=== PATIENT | female | born 1995 | race Caucasian/White ===

== ENCOUNTER → 2018-06-05 | Outpatient (CLI) | payer OTHER ==
[2018-06-05 16:34] LABS: HCT 37.6 % (34.0-46.0); HGB 12.2 gm/dL (11.4-16.0); MCH 26.5 pg (25.0-35.0); MCHC 32.5 g/dL (31.0-37.0); MCV 81.5 fL (80.0-100.0); Mean Platelet Volume 7.7; Platelet Count 189 k/uL (150-450); RBC 4.62 m/uL (3.80-5.40); RDW 14.3 % (11.5-15.5); WBC 9.5 k/uL (3.8-10.6)
[2018-06-05 16:44] LABS: Glucose 72 mg/dL (74-99)
--- NOTE | 2018-06-05 22:28 | US ---
EXAMINATION TYPE: Transabdominal DATE OF EXAM: 08/09/17 COMPARISON: NONE CLINICAL HISTORY: Z36 Confirm dates. Confirm dates, 2 prior c-sections EXAM PERFORMED: Transabdominal (TA) EXAM MEASUREMENTS: GESTATIONAL AGE / DATING Physician Established: (11 weeks/1 days) EDC: 12/24/18 Dates by LMP: (11 weeks/1 days) EDC: 12/24/18 Dates by First Scan: No previous this is first scan Dates by Current Scan for: (11 weeks/0 days) EDC: 12/25/18 MATERNAL ANATOMY Uterus: 11.3 x 8.1 x 8.0cm Right Ovary: 3.7 x 2.0 x 1.5cm Left Ovary: 4.2 x 1.8 x 2.7cm Post CDS / Adnexa: appears wnl Presence of free fluid: no GESTATION / SURVEY CRL: 4.1cm (11 weeks/0 days) Yolk Sac (normal less than 6mm): 0.4cm Heart Rate: 172 bpm Rhythm: Normal IUP: Viable IUP Date of LMP: 03/19/18 Beta HcG (if available): Not available at this time Single live intrauterine gestation is confirmed as the gestational sac, yolk sac, and pole are identified. No free fluid is seen in pelvic cul-de-sac. Both ovaries are seen. There is no suspicious extraovarian adnexal mass noted. IMPRESSION: Single live intrauterine gestation is confirmed, mean crown-rump length is 4.1 cm corresp onding to 11 weeks 0 day old fetus.
[2018-06-06 01:28] LABS: HIV 1 AB Non-Reactive (Non-Reactive); HIV AB P24 Non-Reactive (Non-Reactive); HIV P24 AG Non-Reactive (Non-Reactive)
== END | disposition home or self-care (01) ==
LOC: RADUSWWP 15:47
PROVIDERS: ATTEND Obstetrics & Gynecology
DX: Z36.9 Encounter for antenatal screening, unspecified (principal); Z34.81 Encounter for supervision of other normal pregnancy, first trimester; Z3A.11 11 weeks gestation of pregnancy
CPT/HCPCS: 76801; 82565; 82947; 85027; 86762; 86780; 86850; 86900; 86901; 87340; 87390

== ENCOUNTER 2018-11-06 16:00 | Outpatient (CLI) | payer OTHER ==
[2018-11-06 17:01] LABS: Basophils % (A) 0 %; Eosinophils # (A) 0.2 k/uL (0-0.7); Eosinophils % (A) 2 %; HCT 38.8 % (34.0-46.0); HGB 12.4 gm/dL (11.4-16.0); Lymphocytes # (A) 1.8 k/uL (1.0-4.8); Lymphocytes % (A) 15 %; MCH 26.4 pg (25.0-35.0); MCHC 31.9 g/dL (31.0-37.0); MCV 82.8 fL (80.0-100.0); Mean Platelet Volume 9.3; Monocytes # (A) 0.5 k/uL (0-1.0); Monocytes % (A) 4 %; Neutrophils # (A) 9.5 k/uL (1.3-7.7); Neutrophils % (A) 78 %; Platelet Count 204 k/uL (150-450); RBC 4.68 m/uL (3.80-5.40); RDW 14.4 % (11.5-15.5); WBC 12.2 k/uL (3.8-10.6)
[2018-11-06 17:10] LABS: ALT 13 U/L (9-52); AST 15 U/L (14-36); African American GFR (CKD) >90 (>60 ml/min/1.73 sqM); Blood Urea Nitrogen 3 mg/dL (7-17); LDH 390 U/L (313-618); Uric Acid 3.1 mg/dL (3.7-7.4)
[2018-11-06 17:33] LABS: Amorphous Sediment,Urine Rare /hpf; Appearance,Urine Turbid (Clear); Bilirubin,Urine Negative (Negative); Blood,Urine Negative (Negative); Color,Urine Yellow; Glucose,Urine (UA) Negative (Negative); Ketones,Urine Negative (Negative); Leukocyte Esterase,Urine Moderate (Negative); Mucus,Urine Few /hpf; Nitrite,Urine Negative (Negative); Protein,Urine 1+ (Negative); Specific Gravity,Urine 1.018 (1.001-1.035); Squamous Epithelial Cell,Urine 74 /hpf (0-4); Urobilinogen,Urine <2.0 mg/dL (<2.0); WBC,Urine 15 /hpf (0-5)
[2018-11-06 18:24] VITALS: BP 133/83; PULSE 103; RESP 16; TEMP 98.4
--- NOTE | 2018-11-07 06:41 | P.MSEPDOC ---
Presenting Problems - Arrival Data Date of Arrival on Unit: 11/06/18 Time of Arrival on Unit: 16:00 Mode of Transport: Ambulatory - Complaint OB-Reason for Admission/Chief Complaint: PIH Comment: with script from office Medical History - Information : 5 Para: 2 Term: 0 : 0 Abortions: Spontaneous or Elective: 2 Number of Living Children: 2 - Gestational Age Gestational Age by YRN (wks/days): 33 Weeks and 1 Days - History Complications: Prior Review of Systems - Review of Systems Constitutional: No problems Breast: No problems ENT: No problems Cardiovascular: No problems Respiratory: No problems Gastrointestinal: No problems Genitourinary: No problems Musculoskeletal: No problems Neurological: No problems Skin: No problems Vital Signs - Temperature Temperature: 98.4 F Temperature Source: Oral - Pulse Right Sitting Brachial Pulse Rate: 103 Pulse Assessment Method: Automatic Cuff - Respirations Respiratory Rate: 16 Oxygen Delivery Method: Room Air O2 Sat by Pulse Oximetry: 99 - Blood Pressure Right Arm Sitting Blood Pressure: 133/83 Blood Pressure Mean: 99 Blood Pressure Source: Automatic Cuff Medical Screen Scoring (Pre) - Cervical Exam Dilation: Exam Deferred Effacement: Exam Deferred Membranes: Intact - Uterine Contractions Frequency: N/A - Maternal Vital Signs Maternal Temperature: N/A Maternal Blood Pressure: N/A Signs of Preeclampsia: N/A Maternal Respirations: N/A - Maternal Trauma Maternal Trauma: N/A - Assessment - Baby A Baseline FHR: 125 Heart Rate - NICHD Category: Category I (Normal) = 0 NST: Reactive Position: N/A - Total Score - Baby A Total Score - Baby A: 0 - Total Score - Baby B Total Score - Baby B: 0 - Total Score - Baby C Total Score - Baby C: 0 - Level of Risk - Baby A Level of Risk - Baby A: Low (0-5) - Level of Risk - Baby B Level of Risk - Baby B: Low (0-5) - Level of Risk - Baby C Level of Risk - Baby C: Low (0-5) Physician Notification (Post) - Physician Notified Physician Notified Date: 11/06/18 Physician Notified Time: 17:37 Spoke With: Madelyn Barros Order Received: Yes (dc with instruction) - Notification Comment Comment: labs and pressures wnl, follow up in office next week Disposition - Disposition OB Disposition: Discharge to home, Written follow up instructions reviewed Discharge Date: 11/06/18 Discharge Time: 17:45 I agree with the RN Medical Screening Exam: Yes Risk & Benefit of care provided described in d/c instruction: Yes Diagnosis: GESTATIONAL HTN W/O SIGNIFICANT PROTEINURIA, THIRD TRIMESTER (Patient had some mild blood pressure elevations in the office however here in labor and delivery had all normal blood pressures and normal preeclampsia evaluation. Patient was stable for discharge home follow up with me in 1 week for repeat blood pressure check and to call if any signs or symptoms otherwise.)
== END 2018-11-06 17:45 | disposition home or self-care (01) ==
LOC: FBPOP 16:00
PROVIDERS: ATTEND Obstetrics & Gynecology
DX: O13.3 Gestational [pregnancy-induced] hypertension without significant proteinuria, third trimester (principal); Z3A.33 33 weeks gestation of pregnancy
CPT/HCPCS: 59025; 81001; 82565; 82570; 83615; 84156; 84450; 84460; 84520; 84550; 85025

== ENCOUNTER 2018-12-22 05:50 | Inpatient (IN) | payer OTHER ==
--- NOTE | 2018-12-21 06:36 | P.HPOB ---
History of Present Illness H&P Date: 12/21/18 Chief Complaint: Repeat section This patient is a 23-year-old 5 para 2 female estimated date of confinement 12/24/2018 estimated gestational age 39-4/7 weeks who presents to labor and delivery for elective repeat section. Patient's had 2 previous sections and request repeat. Patient's has been uncomplicated with the exception of one episode of elevated blood pressure at 33 weeks for evaluation was negative in follow-up blood pressures have been fine. Review of Systems Gastrointestinal: Reports heartburn Genitourinary: Reports Menstruation: Reports amenorrhea Past Medical History Past Medical History: No Reported History History of Any Multi-Drug Resistant Organisms: None Reported Past Surgical History: Section Past Anesthesia/Blood Transfusion Reactions: No Reported Reaction Past Psychological History: No Psychological Hx Reported Smoking Status: Former smoker Past Alcohol Use History: None Reported Past Drug Use History: None Reported - Past Family History Mother Family Medical History: No Reported History Medications and Allergies Home Medications Medication Instructions Recorded Confirmed Type Mqc-Solt-Uvhkq Acid 1 each PO DAILY #100 cap 04/07/15 11/06/18 Rx [-U Capsule (formulary)] Allergies Allergy/AdvReac Type Severity Reaction Status Date / Time latex AdvReac Itching Verified 08/05/18 02:07 Exam - OBG Physical Exam Abdomen: bowel sounds normal, no diffuse tenderness, no bruit present, no guarding noted, no hepatomegaly, no splenomegaly, no mass Vulva: both: normal Vagina: normal moisture, no discharge Cervix: no lesion (Cervix in the office is closed.), no discharge Uterus: enlarged (Fundal height greater than dates) Results blood work shows she is O positive, rubella immune, RPR nonreactive, hepatitis B negative, HIV is nonreactive, Glucola was abnormal with a normal three-hour gtt., group B strep was positive, ultrasounds have been normal with the exception of LGA. Assessment and Plan Assessment: This is a 23-year-old 5 para 2 female 39-4/7 weeks gestation with 2 previous sections who is requesting repeat section. Plan is repeat low transverse section. Patient and I discussed the surgery and risks including risks of infection, bleeding, possible injury bowel, bladder, vessels, and/or other organs. She also understands increased risk of DVT and pulmonary embolism. All the patient's questions are answered and a written consent is obtained. (1) 39 weeks gestation of Status: Acute Code(s): Z3A.39 - 39 WEEKS GESTATION OF SNOMED Code(s): 77160626 (2) Previous delivery affecting Status: Acute Code(s): O34.219 - MATERNAL CARE FOR UNSP TYPE SCAR FROM PREVIOUS DEL SNOMED Code(s): 205993105 (3) Group B streptococcal carriage complicating Status: Acute Code(s): O99.820 - STREPTOCOCCUS B CARRIER STATE COMPLICATING SNOMED Code(s): 371132404943951 (4) Morbid obesity Status: Acute Code(s): E66.01 - MORBID (SEVERE) OBESITY DUE TO EXCESS CALORIES SNOMED Code(s): 201256984
[2018-12-22] MEDS ORDERED: LACTATED RINGERS 1,000 ML IV ONE (06:16)
[2018-12-22] MEDS ORDERED: CITRIC ACID-SODIUM CITRATE 15 ML CUP PO ONE (06:16)
[2018-12-22] MEDS ORDERED: LACTATED RINGERS 1,000 ML IV SCH (06:16)
[2018-12-22] MEDS ORDERED: ceFAZolin 3 GM in SODIUM CHLORIDE 0.9% 100 ML IVPB ONE (06:16)
[2018-12-22 06:26] LABS: Basophils % (A) 0 %; Eosinophils # (A) 0.3 k/uL (0-0.7); Eosinophils % (A) 2 %; HCT 38.8 % (34.0-46.0); HGB 12.4 gm/dL (11.4-16.0); Lymphocytes # (A) 2.1 k/uL (1.0-4.8); Lymphocytes % (A) 19 %; MCH 25.9 pg (25.0-35.0); MCHC 32.1 g/dL (31.0-37.0); MCV 80.9 fL (80.0-100.0); Mean Platelet Volume 9.7; Monocytes # (A) 0.5 k/uL (0-1.0); Monocytes % (A) 4 %; Neutrophils # (A) 8.4 k/uL (1.3-7.7); Neutrophils % (A) 73 %; Platelet Count 208 k/uL (150-450); RDW 15.2 % (11.5-15.5); WBC 11.4 k/uL (3.8-10.6)
[2018-12-22 06:33] VITALS: BMI 45.1
[2018-12-22] MEDS ORDERED: ePHEDrine SULFATE/0.9% NACL/PF 50 MG/5 ML SYRINGE IV ONE (07:48)
[2018-12-22] MEDS ORDERED: MORPHINE SULFATE (PF) 0.3 MG/0.3 ML SYR ONE (07:48)
[2018-12-22] MEDS ORDERED: OXYTOCIN 10 UNIT/ML 1 ML VIAL ONE (07:48)
[2018-12-22] MEDS ORDERED: fentaNYL (PF) 50 MCG/ML 2 ML AMP ONE (07:48)
[2018-12-22] MEDS ORDERED: NALBUPHINE 10 MG/ML (1 ML AMP) ONE (07:48)
[2018-12-22] MEDS ORDERED: KETOROLAC 30 MG/ML 1 ML VIAL ONE (07:48)
[2018-12-22] MEDS ORDERED: ONDANSETRON 4 MG/2 ML VIAL ONE (07:48)
[2018-12-22] MEDS ORDERED: METOCLOPRAMIDE 5 MG/ML 2 ML VIAL IVP PRN ×2 (08:34→10:30)
[2018-12-22] MEDS ORDERED: KETOROLAC 30 MG/ML 1 ML VIAL IVP PRN ×2 (08:34→10:30)
[2018-12-22] MEDS ORDERED: diphenhydrAMINE 50 MG/ML 1 ML VIAL IVP PRN ×2 (08:34→10:30)
[2018-12-22] MEDS ORDERED: NALBUPHINE 10 MG/ML (1 ML AMP) IV PRN (08:34)
[2018-12-22] MEDS ORDERED: HYDROmorphone 1 MG/ML 1 ML SYRINGE IVP PRN (08:34)
[2018-12-22] MEDS ORDERED: NALOXONE 0.4 MG/ML 1 ML VIAL IV PRN ×2 (08:34→10:30)
[2018-12-22] MEDS ORDERED: ONDANSETRON 4 MG/2 ML VIAL IVP PRN ×2 (08:34→10:30)
--- NOTE | 2018-12-22 08:44 | P.OP ---
Date of Procedure: 12/22/18 Preoperative Diagnosis: #1: 39-5/7 week intrauterine . #2: Previous section 2 desires repeat. Postoperative Diagnosis: Same Procedure(s) Performed: Repeat low transverse section Anesthesia: spinal Surgeon: Nathanael Joshi Emergency Room Specialist #1: Nirmal Perez Estimated Blood Loss (ml): 800 Pathology: none sent Condition: stable Disposition: floor Indications for Procedure: Please see dictated H&P for intimate details of this patient's admission. Brief summary this is a pleasant 23-year-old 5 para 2 female 39-5/7 weeks gestation admitted to labor and delivery for elective repeat section. Patient understands this procedure and risks including risks of infection, bleeding, possible injury bowel, bladder, vessels, and/or other organs. Patient understands risk of DVT and pulmonary embolism. All the patient's questions are answered written consent is obtained. Operative Findings: This is a vigorous viable male Apgars 9 and 9 delivery time was 0810 hours. Description of Procedure: This patient has a Metcalf catheter placed to straight drain. She is subsequently taken to the operating room where spinal anesthetic is administered without incident. With an adequate level of anesthesia she has abdominal prep and drape. Scalpels and taken in the previous Pfannenstiel incision is incised. A second scalpel is taken down the fascia the fascia scored with a knife. Fascial incision extended bilaterally using Koch scissors. Fascial incision is then dissected sharply off the rectus muscles. Rectus muscles are the peritoneum identified and entered sharply. Peritoneal incision extended superior for about difficulty. Her some small omental adhesions in the left side which are lysed. Bladder blade is then placed. Bladder peritoneum was taken down sharply. Scalpels taken low transverse uterine incision is made. Using a hemostat I enter the uterine cavity bluntly and there is loss of clear fluid. This incision is extended bluntly. Infant's head is then guided through the incision with fundal pressure deliver the 's head. Mouth and nares are bulb suctioned. There is no evidence of nuchal cord. We then have delivery anterior posterior shoulder and rest this infant's body. Is a vigorous viable male Apgars are 9 and 9 delivery time was 0810 hours. After delivery of the infant the umbilical cords doubly clamped and cut. The infant is handed off to the nurses in attendance. Placenta is then manually extracted intact. Uterine incision is then closed using 0 Vicryl running locked fashion 2 layers. Good hemostasis is noted. Inspection of the tubes and ovary showed be normal for term gestation. Excess fluid is removed from the abdomen and pelvis. Uterus placed back in the abdomen. Parietal peritoneum was then closed using 0 Vicryl running fashion. Rectus muscles reapproximated Vicryl interrupted fashion. Fascia is then closed using 0 PDS. Fascial incision is intact and hemostatic. Subcutaneous tissues and closed using a 3-0 Vicryl. Excellent hemostasis is noted. Skin is and closed using pearl. All counts are correct 3. There are no complications. and mother are taken to her birthing suite in satisfactory condition.
[2018-12-22] MEDS ORDERED: HYDROcodone/APAP 5-325MG 1 EACH TAB PO PRN (10:30)
[2018-12-22] MEDS ORDERED: OXYTOCIN 20 UNITS/1000 ML NS 1,000 ML IV SCH (10:30)
[2018-12-22] MEDS ORDERED: LANOLIN CREAM 5 GM TUBE TOPICAL PRN (10:30)
[2018-12-22] MEDS ORDERED: diphenhydrAMINE 25 MG CAP PO PRN (10:30)
[2018-12-22] MEDS ORDERED: ZOLPIDEM 5 MG TAB PO PRN (10:30)
[2018-12-22] MEDS: IBUPROFEN 600 MG TAB PO PRN ×2 (16:55→23:30)
[2018-12-22] MEDS: SENNOSIDES-DOCUSATE SODIUM 1 EACH TAB PO SCH ×2 (19:59→20:00)
[2018-12-22] MEDS: LACTATED RINGERS 1,000 ML IV SCH (20:10)
[2018-12-23] MEDS: ACETAMINOPHEN TAB 325 MG TAB PO PRN ×3 (03:43→20:53)
[2018-12-23 08:09] VITALS: RESP 18
[2018-12-23 08:43] LABS: Basophils % (A) 0 %; Eosinophils # (A) 0.1 k/uL (0-0.7); Eosinophils % (A) 1 %; HCT 34.8 % (34.0-46.0); HGB 10.9 gm/dL (11.4-16.0); Hypochromasia Slight; Lymphocytes # (A) 1.3 k/uL (1.0-4.8); Lymphocytes % (A) 12 %; MCH 25.9 pg (25.0-35.0); MCHC 31.3 g/dL (31.0-37.0); MCV 82.5 fL (80.0-100.0); Mean Platelet Volume 10.1; Monocytes # (A) 0.5 k/uL (0-1.0); Monocytes % (A) 5 %; Neutrophils # (A) 9.2 k/uL (1.3-7.7); Neutrophils % (A) 82 %; Platelet Count 153 k/uL (150-450); RBC 4.21 m/uL (3.80-5.40); RDW 15.7 % (11.5-15.5); WBC 11.3 k/uL (3.8-10.6)
[2018-12-23] MEDS: SENNOSIDES-DOCUSATE SODIUM 1 EACH TAB PO SCH ×2 (08:47→20:53)
[2018-12-23] MEDS: SIMETHICONE 80 MG CHEWABLE PO PRN ×2 (08:48→20:57)
[2018-12-23] MEDS: IBUPROFEN 600 MG TAB PO PRN ×2 (08:48→16:40)
--- NOTE | 2018-12-23 10:25 | P.PNOBGPC ---
Subjective - Subjective Principal diagnosis: Status post repeat low transverse postop day #1 Interval history: Patient seen and examined. She is complaining of some back pain related the spinal and a headache. The headache is worse with standing. I suspect a spinal headache but will attempt hydration and caffeine to alleviate this headache before I consult anesthesia for a blood patch. Her incisional pain is well- controlled with Motrin and [place]. Patient reports: Reports appetite normal, Reports voiding normally, Reports pain well controlled, Reports ambulating normally [place]: doing well Objective - Vital Signs Latest vital signs: Vital Signs Temp Pulse Resp BP Pulse Ox 12/23/18 08:37 98 12/23/18 08:00 18 97 12/23/18 05:00 14 97 12/23/18 03:48 98.2 F 75 16 124/70 12/23/18 03:00 16 12/23/18 01:00 16 98 12/23/18 00:00 98.3 F 75 16 120/65 12/22/18 23:00 16 12/22/18 21:00 16 98 12/22/18 20:00 98.1 F 73 16 117/74 98 12/22/18 18:09 16 12/22/18 17:00 97.9 F 72 16 103/62 98 12/22/18 10:40 98.1 F 67 18 118/61 98 12/22/18 10:37 98.2 F 88 18 122/60 98 Intake and Output 12/22/18 12/23/18 12/23/18 22:59 06:59 14:59 Intake Total 300 Output Total 2650 Balance -2350 Intake: Oral 300 Output: Urine 2650 Uretheral (Metcalf) 800 Other: # Voids 1 1 - Exam Lungs: bilateral: normal Chest: Normal S1, Normal S2 Extremities: Present: normal Abdomen: Present: normal appearance, soft. Absent: distention, tenderness Incision: Present: normal, dry, intact Uterus: Present: normal, firm - Labs Labs: Abnormal Lab Results - Last 24 Hours (Table) 12/23/18 Range/Units 08:05 WBC 11.3 H (3.8-10.6) k/uL Hgb 10.9 L (11.4-16.0) gm/dL RDW 15.7 H (11.5-15.5) % Neutrophils # 9.2 H (1.3-7.7) k/uL Assessment and Plan (1) S/P section Current Visit: No Status: Acute Code(s): Z98.89 - OTHER SPECIFIED POSTPROCEDURAL STATES * DO NOT USE * SNOMED Code(s): 280347726 Plan: 1. Increase fluids and encouraged patient to drink some caffeine 2. When she is feeling better I would like her to ambulate more 3. Regular diet
--- NOTE | 2018-12-23 19:26 | P.PN ---
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 Assessment and plan= postop day 1 status post , doing well there is no anesthesia related complication.
[2018-12-23] MEDS: LACTATED RINGERS 1,000 ML IV SCH ×2 (23:06→23:07)
[2018-12-24] MEDS: ACETAMINOPHEN TAB 325 MG TAB PO PRN (00:34)
[2018-12-24] MEDS: IBUPROFEN 600 MG TAB PO PRN ×2 (04:36→09:54)
[2018-12-24] MEDS: LACTATED RINGERS 1,000 ML IV SCH (04:43)
--- NOTE | 2018-12-24 09:18 | P.DS ---
Providers Date of admission: 12/22/18 05:50 Expected date of discharge: 12/24/18 Attending physician: Nathanael Joshi Primary care physician: Stated None - Discharge Diagnosis(es) (1) S/P section Current Visit: No Status: Acute Hospital Course: Patient presented for repeat low transverse . She underwent this procedure without complication. Postoperatively she is tolerating regular diet and passing flatus. She is ambulating voiding without difficulty. Her pain is well-controlled with by mouth pain meds. She'll be discharged home p ostoperative day #2 in stable condition to follow-up with Dr. Joshi in one week. Plan - Discharge Summary New Discharge Prescriptions: New Ibuprofen [Motrin] 600 mg PO Q6HR PRN #30 tab PRN Reason: Mild Pain Or Fever >= 100.5 HYDROcodone/APAP 5-325MG [[place] 5-325] 1 each PO Q4HR PRN #18 tab PRN Reason: Moderate Pain Discharge Medication List HYDROcodone/APAP 5-325MG [[place] 5-325] 1 each PO Q4HR PRN #18 tab 12/24/18 [Rx] Ibuprofen [Motrin] 600 mg PO Q6HR PRN #30 tab 12/24/18 [Rx] Follow up Appointment(s)/Referral(s): Nathanael Joshi MD [STAFF PHYSICIAN] - 1 Week Discharge Disposition: HOME SELF-CARE
[2018-12-24] MEDS: SIMETHICONE 80 MG CHEWABLE PO PRN (09:55)
[2018-12-24 10:25] VITALS: BP 115/71; PULSE 80; TEMP 98.3
== END 2018-12-24 13:15 | disposition home or self-care (01) | DRG 788 ==
LOC: 4FBP 05:50
PROVIDERS: ADMIT Obstetrics & Gynecology; ATTEND Obstetrics & Gynecology
PROC: 10D00Z1 Extraction of Products of Conception, Low, Open Approach (ICD-10-PCS; principal; 2018-12-22 08:00)
DX: O34.211 Maternal care for low transverse scar from previous cesarean delivery (principal); O99.214 Obesity complicating childbirth; E66.01 Morbid (severe) obesity due to excess calories; O74.5 Spinal and epidural anesthesia-induced headache during labor and delivery; O99.824 Streptococcus B carrier state complicating childbirth; Z37.0 Single live birth; Z3A.39 39 weeks gestation of pregnancy; Z87.891 Personal history of nicotine dependence; Z91.040 Latex allergy status
CPT/HCPCS: 85025; 86850; 86900; 86901

== ENCOUNTER 2021-07-29 05:36 | Inpatient (IN) | payer BC, OTHER ==
--- NOTE | 2021-07-28 12:29 | P.HPOB ---
History of Present Illness H&P Date: 07/28/21 Chief Complaint: Repeat and tubal ligation. This patient is a pleasant 26-year-old 6 para 3 female estimated date of confinement 08/02/2021 estimated gestational age 39-3/7 weeks who is presenting for repeat section and also requesting permanent sterilization. Patient's had previous sections and does desire repeat. is complicated by a placenta previa at approximately 22 weeks however this didn't resolve. also complicated by patient's noncompliance with some testing due to transportation issues. Patient was never able to do her diabetes screening test therefore I did do a hemoglobin A1c which was normal. is otherwise been uncomplicated. Review of Systems Genitourinary: Reports Menstruation: Reports amenorrhea Past Medical History Past Medical History: No Reported History History of Any Multi-Drug Resistant Organisms: None Reported Past Surgical History: Section Past Anesthesia/Blood Transfusion Reactions: No Reported Reaction Past Psychological History: No Psychological Hx Reported Smoking Status: Former smoker Past Alcohol Use History: None Reported Past Drug Use History: None Reported - Past Family History Mother Family Medical History: No Reported History Medications and Allergies Home Medications Medication Instructions Recorded Confirmed Type HYDROcodone/APAP 5-325MG [[place] 1 each PO Q4HR PRN #18 tab 12/24/18 Rx 5-325] Ibuprofen [Motrin] 600 mg PO Q6HR PRN #30 tab 12/24/18 Rx Allergies Allergy/AdvReac Type Severity Reaction Status Date / Time latex AdvReac Itching Verified 12/22/18 06:14 Exam - OBG Physical Exam Abdomen: bowel sounds normal, no diffuse tenderness, no bruit present, no guarding noted, no hepatomegaly, no splenomegaly, no mass Vulva: both: normal Vagina: normal moisture, no discharge Cervix: no lesion, no discharge Uterus: enlarged (Fundal height is 40 cm) Results blood work shows she is O positive, rubella immune, RPR nonreactive, hepatitis B negative, HIV is nonreactive, group B strep was negative will she does have a history of positive strep. Most recent ultrasound showed estimated weight of 5 lbs. 8 oz. with normal anatomy and was on June 30. Assessment and Plan Assessment: This is a pleasant 26-year-old 6 para 3 female estimated gestational age 39-3/7 weeks who presents for elective repeat section and also requesting permanent sterilization. Plan is repeat low transverse section and bilateral partial salpingectomy. Patient understands a tubal ligation is considered permanent however there is a failure rate of approximately 5 or less per thousand procedures done. She understands if she were to become she has a 50% chance of tubal or an ectopic . Patient also understands surgery itself and apparently has risks including risks of infection, bleeding, possible injury bowel, bladder, vessels, and/or other organs. All the patient's questions are answered and a written consent ob tained. (1) Family planning Status: Acute Code(s): Z30.09 - ENCOUNTER FOR OT GENERAL CNSL AND ADVICE ON CONTRACEPTION SNOMED Code(s): 792722072 (2) 39 weeks gestation of Status: Acute Code(s): Z3A.39 - 39 WEEKS GESTATION OF SNOMED Code(s): 43658229 (3) Previous delivery affecting Status: Acute Code(s): O34.219 - MATERNAL CARE FOR UNSP TYPE SCAR FROM PREVIOUS DEL SNOMED Code(s): 982467915
[2021-07-29] MEDS ORDERED: CITRIC ACID-SODIUM CITRATE 15 ML CUP PO ONE (05:53)
[2021-07-29] MEDS ORDERED: LACTATED RINGERS 1,000 ML IV ONE (05:53)
[2021-07-29 06:08] LABS: Basophils % (A) 0 %; Eosinophils # (A) 0.4 k/uL (0-0.7); Eosinophils % (A) 3 %; HCT 39.4 % (34.0-46.0); Hypochromasia Slight; Lymphocytes # (A) 2.7 k/uL (1.0-4.8); Lymphocytes % (A) 19 %; MCH 27.1 pg (25.0-35.0); MCHC 33.1 g/dL (31.0-37.0); Mean Platelet Volume 10.2; Monocytes # (A) 0.5 k/uL (0-1.0); Monocytes % (A) 4 %; Neutrophils # (A) 10.1 k/uL (1.3-7.7); Neutrophils % (A) 72 %; Platelet Count 246 k/uL (150-450); RDW 15.2 % (11.5-15.5)
[2021-07-29 06:13] LABS: Glucose,Whole Blood 97 mg/dL (75-99)
[2021-07-29] MEDS: LACTATED RINGERS 1,000 ML IV SCH ×3 (07:29→12:00)
[2021-07-29] MEDS ORDERED: ePHEDrine 50 MG/ML 1 ML VIAL ONE (07:38)
[2021-07-29] MEDS ORDERED: MORPHINE SULFATE (PF) 0.3 MG/0.3 ML SYR ONE (07:38)
[2021-07-29] MEDS ORDERED: OXYTOCIN 30 UNITS/500 ML NS BAG IV ONE (07:38)
[2021-07-29] MEDS ORDERED: NALBUPHINE 10 MG/ML (1 ML AMP) ONE (07:38)
[2021-07-29] MEDS ORDERED: KETOROLAC 15 MG/ML 1 ML VIAL ONE (07:38)
[2021-07-29] MEDS ORDERED: ONDANSETRON 4 MG/2 ML VIAL ONE (07:38)
--- NOTE | 2021-07-29 08:34 | P.OP ---
Date of Procedure: 07/29/21 Preoperative Diagnosis: #1: 39-3/7 week intrauterine . #2: Previous section 3. #3: Multi parity desires permanent sterilization. Postoperative Diagnosis: #1: Same. #2: Placenta accreta Procedure(s) Performed: Repeat low transverse section and bilateral partial salpingectomy Anesthesia: spinal Surgeon: Nathanael Joshi Neonatal Icu Coordinator #1: Ana Reed Estimated Blood Loss (ml): 800 Pathology: other (Bilateral fallopian tube segments) Condition: stable Disposition: floor Indications for Procedure: Please see dictated H&P for intimate details of this patient's admission. Brief summary is a pleasant 26-year-old 6 para 3 female 39-3/7 weeks gestation admitted to labor and delivery for repeat section and also requesting permanent sterilization. Patient understands a tubal ligation is permanent. She also understands that surgery itself and apparently has risks and risks of infection, bleeding, possible injury to bowel, bladder, vessels, and/or other organs. All the patient's questions are answered and a written consent is obtained. Operative Findings: This is a vigorous viable male Apgars 9 and 9 delivery time was 0755 hours. has spontaneous respiration and good cry and grossly appeared normal. Patient had a large defect in the anterior uterus that was thin with a placenta accreta. Description of Procedure: This patient has a Metcalf catheter placed to straight drain. She is subsequently taken to the operating room where she sat up and spinal anesthetic is administered without incident. With an adequate level of anesthesia she has abdominal prep and drape. Scalpels and taken in the previous Pfannenstiel incision is incised. A second scalpel is taken down to the fascia and the fascia scored with a knife. Fascial incision extended bilaterally using the Koch scissors. Fascia is dissected off the rectus muscles sharply. Rectus muscles are the peritoneum identified and entered sharply. Peritoneal incision extended superior and inferior without difficulty. Bladder blade is placed at this time there is evidence that the lower uterine segment is very thin and there is a approximately 5 cm area of vascularity consistent with a placenta percreta. The bladder is carefully dissected down. Using a scalpel is then make a low transverse uterine incision and it is evident the placenta is anterior and therefore a quickly go through the placenta and the infant is delivered with fundal pressure through the placenta. was immediately delivered cord is doubly clamped and cut and the baby is bulb suctioned. This is a vigorous viable male Apgars 9 and 9 delivery time was 0755 hours. After the is delivered is handed off to the nurses in attendance. The placenta is then manually extracted piecemeal. As stated is a placenta accreta it is somewhat adherent to the uterine incision in the anterior uterine wall. I do believe that we've removed the entirety of the placenta although the edges are still quite ragged. Bleeding appears to be controlled. The rest of the uterus is explored and appears to be clear of all debris. Using a 0 Vicryl and then closed the uterine incisions best as possible running locked fashion. Good hemostasis is noted. One [id number] stitches placed over the middle area where the defect was. Bladder peritoneum was then reapproximated using a 3-0 Vicryl. Hemostasis appears to be excellent this time therefore turned my attention to the left fallopian tube. Proximally 4 cm from the cornual insertion a left side small window is made to the mesial salpinx with Bovie cautery. Using a 2-0 silk I doubly ligate a 2 and a meter area of the fallopian tube. This is excised and handed off to pathology and cautery is done of the tubal ends. Similar technique is done on the right side with similar results. With this done I inspected the uterine incision again appears to be hemostatic. Excess fluid is removed from the abdomen and pelvis uterus placed back into the abdomen. Final inspection of both tubes and uterine incision shows all the be hemostatic. I then isolate the parietal peritoneum then closed using 0 Vicryl running fashion. Rectus muscles reapproximated in 0 Vicryl interrupted fashion. Fascial incision is then closed using 0 PDS. Fascial incision is intact and hemostatic. Subcutaneous tissue was then closed using a 3-0 Vicryl. Skin is and closed using pearl. All counts are correct 3. There are no complications. and mother are taken to the birthing suite in satisfactory condition.
[2021-07-29] MEDS ORDERED: diphenhydrAMINE 50 MG/ML 1 ML VIAL IVP PRN ×2 (08:48→11:06)
[2021-07-29] MEDS ORDERED: KETOROLAC 15 MG/ML 1 ML VIAL IVP PRN (08:48)
[2021-07-29] MEDS ORDERED: HYDROmorphone 0.5 MG/0.5 ML SYRINGE IVP PRN (08:48)
[2021-07-29] MEDS ORDERED: ONDANSETRON 4 MG/2 ML VIAL IVP PRN ×2 (08:48→11:06)
[2021-07-29] MEDS ORDERED: NALOXONE 0.4 MG/ML 1 ML VIAL IV PRN ×2 (08:48→11:06)
[2021-07-29] MEDS ORDERED: NALBUPHINE 10 MG/ML (1 ML AMP) IV PRN (08:48)
[2021-07-29] MEDS ORDERED: ZOLPIDEM 5 MG TAB PO PRN (11:06)
[2021-07-29] MEDS ORDERED: OXYTOCIN 30 UNITS/500 ML NS 30 UNIT in SALINE 1 500ML.BAG IV SCH (11:06)
[2021-07-29] MEDS ORDERED: diphenhydrAMINE 25 MG CAP PO PRN (11:06)
[2021-07-29] MEDS ORDERED: METOCLOPRAMIDE 5 MG/ML 2 ML VIAL IVP PRN (11:06)
[2021-07-29] MEDS ORDERED: LANOLIN CREAM 5 GM TUBE TOPICAL PRN (11:06)
[2021-07-29] MEDS: ACETAMINOPHEN TAB 500 MG TAB PO PRN (13:14)
[2021-07-29] MEDS: KETOROLAC 15 MG/ML 1 ML VIAL IVP SCH ×2 (15:23→22:25)
[2021-07-29] MEDS: SENNOSIDES-DOCUSATE SODIUM 1 EACH TAB PO SCH (15:23)
[2021-07-30] MEDS: ACETAMINOPHEN TAB 500 MG TAB PO PRN (03:50)
--- NOTE | 2021-07-30 06:28 | P.PN ---
Progress Note - Text Progress Note Date: 07/30/21 26 yo female s/p C/section with intrathecal duramorph spinal VAS 1-3/10 in severity, no back pain, no motor or sensory deficits. Ambulating well, tolerating diet, urinating. Patient doing well.
--- NOTE | 2021-07-30 06:37 | P.PNOBGPC ---
Subjective - Subjective Patient reports: Reports appetite normal, Reports voiding normally, Reports pain well controlled, Reports ambulating normally : doing well Objective - Vital Signs Latest vital signs: Vital Signs Temp Pulse Resp BP Pulse Ox 07/30/21 05:25 16 07/30/21 05:00 97 07/30/21 04:00 98.0 F 70 16 120/80 07/30/21 01:27 16 07/30/21 01:00 98 07/30/21 00:00 98.2 F 70 16 07/29/21 22:00 16 07/29/21 20:25 98 07/29/21 20:00 98.5 F 77 16 126/80 07/29/21 18:00 97.3 F L 65 18 127/79 99 07/29/21 17:00 99 07/29/21 16:00 97.3 F L 65 18 127/79 99 07/29/21 13:48 18 98 07/29/21 12:00 97.8 F 69 18 121/72 99 07/29/21 10:25 96.9 F L 59 L 16 125/61 99 07/29/21 09:55 57 L 16 122/63 99 07/29/21 09:48 16 99 07/29/21 09:25 64 16 122/64 99 07/29/21 09:10 68 16 122/64 100 07/29/21 08:55 65 16 117/69 100 07/29/21 08:48 16 99 07/29/21 08:40 70 16 114/71 99 07/29/21 08:25 97.2 F L 69 16 114/59 99 Intake and Output 07/29/21 07/29/21 07/30/21 14:59 22:59 06:59 Output Total 916 600 Balance -916 -600 Output: Urine 300 600 Output, Quantitative 616 Blood Loss Other: # Voids 2 1 - Exam Lungs: bilateral: normal Chest: Normal S1, Normal S2 Extremities: Present: normal Abdomen: Present: normal appearance, soft. Absent: distention, tenderness Incision: Present: normal, dry, intact Uterus: Present: normal, firm Assessment and Plan Assessment: Post operative day #1. Patient is resting without complaints. Vital signs are stable she's afebrile. Uterus is firm and nontender and she is having normal lochia. Her incision is intact and dry. CBC is pending at time of this dictation. My impression this is a normal post operative course. Plan is to continue routine postoperative care, check a CBC, encourage ambulation, allow the patient to shower (1) Family planning Current Visit: No Status: Acute Code(s): Z30.09 - ENCOUNTER FOR OT GENERAL CNSL AND ADVICE ON CONTRACEPTION SNOMED Code(s): 118819305 (2) 39 weeks gestation of Current Visit: No Status: Acute Code(s): Z3A.39 - 39 WEEKS GESTATION OF SNOMED Code(s): 05013342 (3) Previous delivery affecting Current Visit: No Status: Acute Code(s): O34.219 - MATERNAL CARE FOR UNSP TYPE SCAR FROM PREVIOUS DEL SNOMED Code(s): 588750609
[2021-07-30 06:41] LABS: Basophils % (A) 0 %; Eosinophils # (A) 0.2 k/uL (0-0.7); Eosinophils % (A) 2 %; HCT 33.7 % (34.0-46.0); HGB 10.5 gm/dL (11.4-16.0); Hypochromasia Slight; Lymphocytes # (A) 1.8 k/uL (1.0-4.8); Lymphocytes % (A) 14 %; MCH 26.1 pg (25.0-35.0); MCV 84.2 fL (80.0-100.0); Mean Platelet Volume 10.8; Monocytes # (A) 0.5 k/uL (0-1.0); Monocytes % (A) 4 %; Neutrophils % (A) 79 %; Platelet Count 174 k/uL (150-450); RDW 14.9 % (11.5-15.5); WBC 12.7 k/uL (3.8-10.6)
[2021-07-30] MEDS: SENNOSIDES-DOCUSATE SODIUM 1 EACH TAB PO SCH ×3 (09:08→21:11)
[2021-07-30] MEDS: IBUPROFEN 600 MG TAB PO PRN ×3 (09:08→23:22)
[2021-07-30] MEDS: KETOROLAC 15 MG/ML 1 ML VIAL IVP SCH ×2 (11:16→21:12)
[2021-07-30] MEDS: SIMETHICONE 80 MG CHEWABLE PO PRN ×2 (18:47→20:28)
[2021-07-30] MEDS: LACTATED RINGERS 1,000 ML IV SCH (21:11)
[2021-07-31 01:17] VITALS: RESP 18
[2021-07-31] MEDS: ACETAMINOPHEN TAB 500 MG TAB PO PRN ×2 (01:56→05:54)
[2021-07-31] MEDS: IBUPROFEN 600 MG TAB PO PRN ×2 (06:13→13:44)
--- NOTE | 2021-07-31 06:42 | P.PNOBGPC ---
Subjective - Subjective Patient reports: Reports appetite normal, Reports voiding normally, Reports pain well controlled, Reports ambulating normally : doing well Objective - Vital Signs Latest vital signs: Vital Signs Temp Pulse Pulse Pulse Resp BP BP 07/31/21 00:00 98.4 F 84 18 128/86 07/30/21 15:59 98 F 78 22 126/81 07/30/21 10:07 97.9 F 76 76 22 125/86 Pulse Ox 07/31/21 00:00 99 07/30/21 15:59 07/30/21 10:07 Intake and Output 07/30/21 07/30/21 07/31/21 14:59 22:59 06:59 Output Total 600 Balance -600 Output: Urine 600 Other: # Voids 8 1 # Bowel Movements 0 - Exam Lungs: bilateral: normal Chest: Normal S1, Normal S2 Extremities: Present: normal Abdomen: Present: normal appearance, soft. Absent: distention, tenderness Incision: Present: normal, dry, intact Uterus: Present: normal, firm - Labs Labs: Abnormal Lab Results - Last 24 Hours (Table) 07/30/21 Range/Units 06:18 WBC 12.7 H (3.8-10.6) k/uL Hgb 10.5 L (11.4-16.0) gm/dL Hct 33.7 L (34.0-46.0) % Neutrophils # 10.0 H (1.3-7.7) k/uL Assessment and Plan Assessment: Postoperative day #2. Patient is resting without complaints and wishes to go home. Vital signs are stable and she is afebrile. Uterus is firm nontender and her incision is intact and dry. My impression this is a normal course. Plan is to continue routine care and discharge home later today. (1) Family planning Current Visit: No Status: Acute Code(s): Z30.09 - ENCOUNTER FOR OTH GENERAL CNSL AND ADVICE ON CONTRACEPTION SNOMED Code(s): 173517981 (2) 39 weeks gestation of Current Visit: No Status: Acute Code(s): Z3A.39 - 39 WEEKS GESTATION OF SNOMED Code(s): 68193321 (3) Previous delivery affecting Current Visit: No Status: Acute Code(s): O34.219 - MATERNAL CARE FOR UNSP TYPE SCAR FROM PREVIOUS DEL SNOMED Code(s): 210167058
--- NOTE | 2021-07-31 06:49 | P.DS ---
Providers Date of admission: 07/29/21 05:36 Expected date of discharge: 07/31/21 Attending physician: Nathanael Joshi Primary care physician: Stated None - Discharge Diagnosis(es) (1) Family planning Current Visit: No Status: Acute (2) 39 weeks gestation of Current Visit: No Status: Acute (3) Previous delivery affecting Current Visit: No Status: Acute Hospital Course: Please see dictated H&P for intimate details of this patient's admission. Brief summary this is a pleasant 26-year-old 6 para 3 female 39-3/7 weeks who is admitted to labor and delivery for elective repeat section and also tubal ligation. Patient is admitted she undergoes above-named surgery. Please see dictated operative note. Note she did have a placenta accreta noted at the time of delivery and this was removed without difficulty. On day #2 patient's felt be stable for discharge home follow up with me in 1 week. Procedures: Repeat low transverse section and bilateral partial salpingectomy Patient Condition at Discharge: Good Plan - Discharge Summary New Discharge Prescriptions: New Ibuprofen [Motrin] 600 mg PO Q6H PRN #40 tab PRN Reason: Pain oxyCODONE HCL [OxyIR] 5 mg PO Q4HR PRN #18 tab PRN Reason: Pain No Action Pnv No.95/Ferrous Fum/Folic AC [ Multivitamin Tablet] 1 tab PO DAILY Discharge Medication List Pnv No.95/Ferrous Fum/Folic AC [ Multivitamin Tablet] 1 tab PO DAILY 07/29/21 [History] Ibuprofen [Motrin] 600 mg PO Q6H PRN #40 tab 07/31/21 [Rx] oxyCODONE HCL [OxyIR] 5 mg PO Q4HR PRN #18 tab 07/31/21 [Rx] Follow up Appointment(s)/Referral(s): Nathanael Joshi MD [STAFF PHYSICIAN] - 09/07/21 2:15 pm (Please come for an incision check on 08-06 at 1:30) Patient Instructions/Handouts: (DC) Activity/Diet/Wound Care/Special Instructions: No strenuous activity or heavy lifting for 6 weeks. No intercourse or anything per vagina for 6 weeks. Please call if any fever, chills, excessive vaginal bleeding, and/or abdominal pain. Discharge Disposition: HOME SELF-CARE
[2021-07-31 08:45] VITALS: BP 129/83; TEMP 97.3
[2021-07-31] MEDS: SENNOSIDES-DOCUSATE SODIUM 1 EACH TAB PO SCH (13:44)
[2021-07-31 23:01] VITALS: PULSE 76
== END 2021-07-31 14:30 | disposition home or self-care (01) | DRG 784 ==
LOC: 4FBP 05:36
PROVIDERS: ADMIT Obstetrics & Gynecology; ATTEND Obstetrics & Gynecology
PROC: 0UB70ZZ Excision of Bilateral Fallopian Tubes, Open Approach (ICD-10-PCS; principal; 2021-07-29 17:51)
PROC: 10D00Z1 Extraction of Products of Conception, Low, Open Approach (ICD-10-PCS; principal; 2021-07-29 17:51)
DX: O34.211 Maternal care for low transverse scar from previous cesarean delivery (principal); O44.03 Complete placenta previa NOS or without hemorrhage, third trimester; O43.213 Placenta accreta, third trimester; Z30.2 Encounter for sterilization; Z37.0 Single live birth; Z3A.39 39 weeks gestation of pregnancy; Z87.891 Personal history of nicotine dependence; Z91.19 Patient's noncompliance with other medical treatment and regimen; Z91.040 Latex allergy status
CPT/HCPCS: 85025; 86850; 86900; 86901; 88302

== ENCOUNTER 2022-07-21 15:14 | Emergency (ER) | payer BC, OTHER ==
--- NOTE | 2022-07-21 15:52 | ED ---
General Adult HPI - General Stated complaint: back pain Time Seen by Provider: 07/21/22 15:51 Source: patient, RN notes reviewed Mode of arrival: ambulatory Limitations: no limitations - History of Present Illness Initial comments: 27-year-old female presents emergency Department chief complaint of low back pain. Patient states she felt like she just with surrounding injured her back states it's not getting any better. Patient denies any dysuria hematuria denies any chance she is currently on her menstrual cycle. She does have pain and location of her prior spinal from . Patient denies any lower extremity paresthesias no bowel, bladder incontinence or retention. - Related Data Home Medications Medication Instructions Recorded Confirmed Pnv No.95/Ferrous Fum/Folic AC 1 tab PO DAILY 07/29/21 07/29/21 [ Multivitamin Tablet] Previous Rx's Medication Instructions Recorded Ibuprofen [Motrin] 600 mg PO Q6H PRN #40 tab 07/31/21 oxyCODONE HCL [OxyIR] 5 mg PO Q4HR PRN #18 tab 07/31/21 Cyclobenzaprine [Flexeril] 10 mg PO TID PRN #15 tab 07/21/22 Ibuprofen [Motrin] 600 mg PO Q8HR PRN #20 tab 07/21/22 predniSONE 50 mg PO DAILY #5 tab 07/21/22 Allergies Allergy/AdvReac Type Severity Reaction Status Date / Time latex AdvReac Itching Verified 07/21/22 16:15 Review of Systems ROS Statement: Those systems with pertinent positive or pertinent negative responses have been documented in the HPI. ROS Other: All systems not noted in ROS Statement are negative. Past Medical History Past Medical History: No Reported History History of Any Multi-Drug Resistant Organisms: None Reported Past Surgical History: Section Past Anesthesia/Blood Transfusion Reactions: No Reported Reaction Past Psychological History: No Psychological Hx Reported Smoking Status: Former smoker Past Alcohol Use History: None Reported Past Drug Use History: None Reported - Past Family History Mother Family Medical History: No Reported History General Exam General appearance: alert, in no apparent distress Head exam: Present: atraumatic, normocephalic, normal inspection Eye exam: Present: normal appearance, PERRL, EOMI. Absent: scleral icterus, conjunctival injection, periorbital swelling Respiratory exam: Present: normal lung sounds bilaterally. Absent: respiratory distress, wheezes, rales, rhonchi, stridor Cardiovascular Exam: Present: regular rate, normal rhythm, normal heart sounds. Absent: systolic murmur, diastolic murmur, rubs, gallop, clicks Extremities exam: Present: other (Lower extremity strength equal bilaterally, neurovascular intact) Back exam: Present: full ROM, tenderness, paraspinal tenderness, vertebral tenderness Neurological exam: Present: alert, oriented X3, CN II-XII intact, reflexes normal. Absent: motor sensory deficit Skin exam: Present: warm, dry, intact, normal color. Absent: rash Course Vital Signs 07/21/22 07/21/22 16:13 17:24 Temperature 98.1 F 98.0 F Pulse Rate 69 64 Respiratory 20 16 Rate Blood Pressure 123/74 116/79 O2 Sat by Pulse 99 100 Oximetry Medical Decision Making - Medical Decision Making Was pt. sent in by a medical professional or institution ([facility], MECHANICAL RESEARCH ENGINEER, urgent care, hospital, or residential...) When possible be specific @ -No Did you speak to anyone other than the patient for history (EMS, parent, family, police, friend...)? What history was obtained from this source @ -No Did you review nursing and triage notes (agree or disagree)? Why? @ -I reviewed and agree with nursing and triage notes Were old charts reviewed (outside hosp., previous admission, EMS record, old EKG, old radiological studies, urgent care reports/EKG's, residential records)? Report findings @ -No old charts were reviewed Differential Diagnosis (chest pain, altered mental status, abdominal pain women, abdominal pain men, vaginal bleeding, weakness, fever, dyspnea, syncope, headache, dizziness, GI bleed, back pain, seizure, CVA, palpatations, mental health, musculoskeletal)? @ -nDifferential Back Pain: Strain, zoster, cauda equina syndrome, epidural abscess, vertebral osteomyelitis, discitis, fracture, subluxation, disc herniation, DJD, spinal stenosis, dissection, AAA, pancreatitis, peptic ulcer disease, pyelonephritis, kidney stone, this is not meant to be an all-inclusive list.le EKG interpreted by me (3pts min.). @ -None X-rays interpreted by me (1pt min.). @ -X-ray shows no acute abnormality lumbar spine CT interpreted by me (1pt min.). @ -None done U/S interpreted by me (1pt. min.). @ -None done What testing was considered but not performed or refused? (CT, X-rays, U/S, labs)? Why? @ -None What meds were considered but not given or refused? Why? @ -None Did you discuss the management of the patient with other professionals (professionals i.e. Dr., PA, MECHANICAL RESEARCH ENGINEER, lab, RT, psych nurse, social problems specialist, pattern scratcher, teacher, air control/anti air warfare officer, casework manager)? Give summary @ -No Was smoking cessation discussed for >3mins.? @ -No Was critical care preformed (if so, how long)? @ -No Were there social determinants of health that impacted care today? How? (Homelessness, low income, unemployed, alcoholism, drug addiction, transportation, low edu. Level, literacy, decrease access to med. care, longterm, rehab)? @ -No Was there de-escalation of care discussed even if they declined (Discuss DNR or withdrawal of care, Hospice)? DNR status @ -No What co-morbidities impacted this encounter? (DM, HTN, Smoking, COPD, CAD, Cancer, CVA, ARF, Chemo, Hep., AIDS, mental health diagnosis, sleep apnea, morbid obesity)? @ -None Was patient admitted / discharged? Hospital course, mention meds given and route, prescriptions, significant lab abnormalities, going to OR and other pertinent info. @ -Discharge x-rays were negative patient has lumbar strain with no red flag symptoms patient will be discharged in stable condition urinalysis did reveal hematuria patient on mental cycle no evidence of UTI. Undiagnosed new problem with uncertain prognosis? @ -No Drug Therapy requiring intensive monitoring for toxicity (Heparin, Nitro, Insulin, Cardizem)? @ -No Were any procedures done? @ -No Diagnosis/symptom? @ -Lumbar strain Acute, or Chronic, or Acute on Chronic? @ -[Acute Uncomplicated (without systemic symptoms) or Complicated (systemic symptoms)? @ -Uncomplicated Side effects of treatment? @ -No Exacerbation, Progression, or Severe Exacerbation? @ -No Poses a threat to life or bodily function? How? (Chest pain, [place], [place], pneumonia, PE, COPD, DKA, ARF, appy, cholecystitis, CVA, Diverticulitis, Homicidal, Suicidal, threat to staff... and all critical care pts) @ -No - Lab Data Lab Results 07/21/22 Range/Units 16:23 Urine Color Colorless Urine Appearance Clear (Clear) Urine pH 5.0 (5.0-8.0) Ur Specific [place] 1.007 (1.001-1.035) Urine Protein Negative (Negative) Urine Glucose (UA) Negative (Negative) Urine Ketones Negative (Negative) Urine Blood Large H (Negative) Urine Nitrite Negative (Negative) Urine Bilirubin Negative (Negative) Urine Urobilinogen <2.0 (<2.0) mg/dL Ur Leukocyte Esterase Negative (Negative) Urine RBC >182 H (0-5) /hpf Urine WBC 12 H (0-5) /hpf Ur Squamous Epith Cells 6 H (0-4) /hpf Disposition Clinical Impression: Strain of lumbar region Disposition: HOME SELF-CARE Condition: Stable Instructions (If sedation given, give patient instructions): Acute Low Back Pa in (ED) Additional Instructions: Please return to the Emergency Department if symptoms worsen or any other concerns. Prescriptions: Cyclobenzaprine [Flexeril] 10 mg PO TID PRN #15 tab PRN Reason: Muscle Spasm Ibuprofen [Motrin] 600 mg PO Q8HR PRN #20 tab PRN Reason: Pain predniSONE 50 mg PO DAILY #5 tab Is patient prescribed a controlled substance at d/c from ED?: No Referrals: None,Stated [Primary Care Provider] - 1-2 days To Perry DO [Doctor of Osteopathic Medicine] - 1-2 days Time of Disposition: 17:05
[2022-07-21 16:49] LABS: Appearance,Urine Clear (Clear); Bilirubin,Urine Negative (Negative); Blood,Urine Large (Negative); Color,Urine Colorless; Glucose,Urine (UA) Negative (Negative); Ketones,Urine Negative (Negative); Leukocyte Esterase,Urine Negative (Negative); Nitrite,Urine Negative (Negative); Protein,Urine Negative (Negative); RBC,Urine >182 /hpf (0-5); Specific Gravity,Urine 1.007 (1.001-1.035); Squamous Epithelial Cell,Urine 6 /hpf (0-4); Urobilinogen,Urine <2.0 mg/dL (<2.0); WBC,Urine 12 /hpf (0-5)
--- NOTE | 2022-07-21 17:01 | XR ---
EXAMINATION TYPE: XR lumbar spine 2 or 3V DATE OF EXAM: 07/21/2022 COMPARISON: NONE HISTORY: Pain TECHNIQUE: 3 views FINDINGS: Lumbar vertebra have normal alignment. Posterior elements are intact. No compression fractu re. Sacroiliac joints are intact. IMPRESSION: Negative lumbar spine exam. No fracture.
[2022-07-21] MEDS ORDERED: ACET/COD 300 MG/30 MG STARTER PACK 6 TAB BTL PO STA (17:05)
[2022-07-21 17:26] VITALS: BP 116/79; PULSE 64; RESP 16; TEMP 98
== END 2022-07-21 17:42 | disposition home or self-care (01) ==
LOC: EC 15:14
DX: S39.012A Strain of muscle, fascia and tendon of lower back, initial encounter (principal); Z87.891 Personal history of nicotine dependence; Z91.040 Latex allergy status; X58.XXXA Exposure to other specified factors, initial encounter
CPT/HCPCS: 72100; 81001; 87086; 99283

== ENCOUNTER → 2022-07-31 | Outpatient (CLI) | payer OTHER ==
--- NOTE | 2022-07-31 14:43 | MR ---
EXAMINATION TYPE: MR lumbar spine wo con DATE OF EXAM: 07/31/2022 COMPARISON: None HISTORY: Low back pain that radiates down both legs. CONTRAST: 0 mL intravenous Gadavist. TECHNIQUE: Multiplanar, multisequence images of the lumbar spine were acquired. FINDINGS: Cord terminates at the L2 level. L5-S1: Disc desiccation is present. Disc height is preserved. Minimal central disc bulge is present w ith mild anterior thecal sac contact. No AP spinal canal stenosis is present. Exiting nerve roots betsey ear normal. No spinal canal stenosis. No foraminal stenosis. L4-L5: No significant disc bulge or disc herniation. No spinal canal stenosis. No foraminal stenosi s. L3-L4: No significant disc bulge or disc herniation. No spinal canal stenosis. No foraminal stenosi s. L2-L3: No significant disc bulge or disc herniation. No spinal canal stenosis. No foraminal stenosi s. L1-L2: No significant disc bulge or disc herniation. No spinal canal stenosis. No foraminal stenosi s. T12-L1: No significant disc bulge or disc herniation. No spinal canal stenosis. No foraminal stenos is. IMPRESSION: 1. Disc desiccation without loss of disc height L5-S1. 2. Some minimal central focal bulging is present at L5-S1 with anterior thecal sac contact. No stenos is is evident.
== END | disposition home or self-care (01) ==
LOC: RADMRIMAIN 12:28
PROVIDERS: ATTEND Nurse Practitioner Family
DX: M47.26 Other spondylosis with radiculopathy, lumbar region (principal); M51.16 Intervertebral disc disorders with radiculopathy, lumbar region
CPT/HCPCS: 72148

== ENCOUNTER → 2022-09-01 | Outpatient (CLI) | payer OTHER ==
[2022-09-01 12:17] VITALS: BP 132/77; PULSE 85; RESP 18; TEMP 97.9
--- NOTE | 2022-09-01 14:17 | P.PAINPG ---
PQRS Measure Charge Sheet Comment: HISTORY OF PRESENT ILLNESS: 27yr old female w at side as a referral from [facility] presents today w severe and chronic LBP x 2 yrs secondary to DDD, spondylosis and facet arthropathy without myelopathy for evaluation. Pt states pain level is provoked at 6 /10 in intensity, constant, localized in the lower lumbar spine where it meets the tailbone, sharp in character w shooting pain towards the LLE. Pain is provoked by weight bearing activity. Pain is alleviated by medications (Tyl), injections in 2019, Pt x 3 wks integrated w decompression which she is currently in, repositioning, heat and rest. PMH: No Reported History PSH: Section SH: Former tobacco user, No ETOH or illicit drug use FH: Mo- No Reported History All: See list Meds: See list REVIEW OF ORGAN SYSTEMS: CONSTITUTIONAL: No fevers or chills. No recent weight loss. NEUROLOGICAL: + numbness and tingling along the distal extremities. No seizure disorders or headaches. MUSCULOSKELETAL: + pain PSYCHIATRIC: Denies current depression or suicidal thoughts. Physical Examinations : Constitutional : Cooperative , not in acute distress . Neurologic : Cranial nerve II to XII intact. No focal neurological deficits. Psychiatric : alert & oriented x 3. Matching mood & appropriate affect. Judgment & insight intact. Musculoskeletal : Cervical Spine Motor strength in the deltoid and biceps: Normal right side. Normal Left side Motor strength biceps and the wrist extensors: Normal right side . Normal left side Motor strength in the triceps muscle: Normal right side. Normal left side Deep tendon reflexes: Normal at the biceps. Normal at Brachioradialis. Normal at triceps Vertebral body tenderness to deep palpation over Cervical facet loading test: positive bilaterally Spurling test: positive bilaterally Neck distraction test: positive bilaterally Richard sign: positive bilaterally Lumbar spine Motor strength lower extremities ,thigh and legs 5/5 Right side , 5/5 Left side Deep tendon reflexes : Normal Knee Jerk. Normal Ankle Jerk Vertebral body tenderness over L5 Lumbar facet Loading Test: positive Right / positive Left Range of motion of the lumbar spine Flexion 30 degrees, extension 10 degrees Straight Leg Raise test: Left/ Right positive at degree Laith test: positive right / positive left. Severe tenderness over the Sacroiliac joint on the Right / Left sides Gaenslen test: positive bilaterally Seated flexion test: positive bilaterally. Sacral spine : Severe tenderness over the Sacroiliac joint: right side / left side Range of motion: Flexion of the lumbar spine <60 degrees Range of motion: Extension of the lumbar spine <20 degrees Gaenslen's Test positive Terrance's Test positive Laith test: positive right side / left side Thigh Thrust Test Sacral Thrust Test Imaging: MRI noncontrast of the lumbar spine from the reviewed Assessment/ Plan : Lumbar DDD Recommendation of GIOVANY L5-S1 #1. May need a series of injections for optimal pain relief. Risks, benefits of procedure discussed and patient verbalized understanding. Admits to aspirin or anti- coagulant use or medical history of diabetes. Protocol for discontinuation/ continuation of medications akash procedure discussed. All questions answered. I have spent greater than 30 minutes on patient care today. Dr Kimball was available by phone for the evaluation of this patient. The time was used to review the medical records including relevant urine studies and Prescription history (MAPs), review of the available imaging, evaluation and examination of the patient, coordination of care with the medical staff and if applicable referring physicians, as well as creation of the medical record PQRS Narrative: Smoking Status Former smoker Home Medications: Ambulatory Orders Pnv No.95/Ferrous Fum/Folic AC [ Multivitamin Tablet] 1 tab PO DAILY 07/29/21 Ibuprofen [Motrin] 600 mg PO Q6H PRN #40 tab 07/31/21 oxyCODONE HCL [OxyIR] 5 mg PO Q4HR PRN #18 tab 07/31/21 Cyclobenzaprine [Flexeril] 10 mg PO TID PRN #15 tab 07/21/22 Ibuprofen [Motrin] 600 mg PO Q8HR PRN #20 tab 07/21/22 predniSONE 50 mg PO DAILY #5 tab 07/21/22 Controlled Substance Measures - Controlled Substance Measures Is patient prescribed a controlled substance at discharge?: No
== END ==
LOC: PNWHC3 09:18
PROVIDERS: ATTEND Specialist
DX: M51.36 Other intervertebral disc degeneration, lumbar region (principal); Z87.891 Personal history of nicotine dependence; Z91.040 Latex allergy status
CPT/HCPCS: 99211

== ENCOUNTER 2022-10-05 12:17 | Day surgery (SDC) | payer OTHER ==
[2022-09-30 12:01] VITALS: BMI 35.4
[2022-10-05 13:03] VITALS: RESP 16; TEMP 97
[2022-10-05] MEDS ORDERED: LACTATED RINGERS 1,000 ML IV ONE (13:03)
[2022-10-05] MEDS ORDERED: LIDOCAINE 1% (10MG/ML) FOR IV START INTRADERMA ONE (13:03)
[2022-10-05] MEDS ORDERED: fentaNYL (PF) 50 MCG/ML 2 ML AMP ONE (13:15)
[2022-10-05] MEDS ORDERED: MIDAZOLAM 2 MG/2 ML VIAL ONE (13:15)
[2022-10-05] MEDS ORDERED: methylPREDNISolone ACETATE 80 MG/ML 1 ML VIAL ONE (13:15)
[2022-10-05] MEDS ORDERED: IOPAMIDOL M200 10 ML VIAL ONE (13:15)
--- NOTE | 2022-10-05 13:29 | P.PCN ---
Date of Procedure: 10/05/22 Procedure(s) Performed: PREOPERATIVE DIAGNOSIS: 1- Lumbar Degenerative Disc Diseases 2-Lumbar radiculopathy POSTOPERATIVE DIAGNOSIS: 1-lumbar degenerative disc disease. 2-lumbar radiculopathy PROCEDURE 1. Lumbar epidural steroid injection under fluoroscopic guidance at the L5-S1 level. (Fluoroscopy imaging was available in radiology department) 2. Lumbar epidurogram. ANESTHESIA: moderate sedation with intravenous Versed 2 mg ,and fentanyle 50 Mcg Sedation start time : 1321 Sedation end time : 1327 EBL: Minimal PROCEDURE INDICATION: The patient with low back pain and radiculitis symptoms unresponsive to conservative treatment. Fluoroscopy was used to optimize visualization of the needle placement and to maximize safety. PROCEDURE DESCRIPTION / TECHNIQUE: The patient was seen and identified in the preoperative area. Risks, benefits, complications including but not limited to infections ,bleeding ,allergic reaction to the medications ,nerve damage and not complete pain releife , and alternatives were discussed with the patient. The patient agreed to proceed with the procedure and signed the consent. IV was started, and vital signs were stable. Patient was taken to the OR and time out was completed. The patient was placed in the prone position on procedure table and a pillow was placed under the abdomen to reduce lumbar lordosis. The lumbosacral area was prepped and draped in the usual sterile fashion.ere closely monitored during the procedure. Conscious sedation was used during the procedure to decrease patients anxiety. Vital signs was monitered during the entire procedure. Using anterior-posterior fluoroscopy, the L5-S1 interlaminar space was identified and the skin over this site was marked and then infiltrated with 1% lidocaine subcutaneously. Subsequently, a 20-gauge Tuohy epidural needle was inserted and advanced toward the epidural space using the ``Loss of resistance technique and guided by AP and lateral fluoroscopy. The correct needle position in the epidural space was verified with the injection of 2 mL of the water soluble contrast dye Isovue 200 contrast and observing an excellent epidurogram with the epidural spread of the dye, after negative aspiration for blood and CSF and in the absence of paresthesias. Again after negative aspiration, a 6 ml mixture containing 80 mg of Depo-medrol ( Preservetive Free ), and 2 ml of preservative free Normal Saline, and 2 ml of preservative free lidocaine 1% solution was injected and a washout of epidurogram was seen. Needle was withdrawn intact, skin was cleansed, and bandages were applied. COMPLICATIONS: None DISPOSITION / PLANS: The patient was placed in a supine position and transferred to the recovery area in a stable condition for observation. There was no evidence of lower extremity motor or sensory deficit after the procedure. Patient was discharged from the recovery room after meeting discharge criteria. Home discharge instructions were given to the patient by the staff. The patient was reexamined prior to discharge. The patient will schedule a follow up in the clinic in 2-4 weeks.
[2022-10-05] MEDS ORDERED: IV FLUID CONTINUATION 500 ML IV ONE ×2 (13:38)
[2022-10-05] MEDS ORDERED: LACTATED RINGERS 1,000 ML IV SCH (13:48)
[2022-10-05] MEDS ORDERED: LIDOCAINE 1% (10MG/ML) FOR IV START INTRADERMA PRN (13:48)
[2022-10-05 14:11] VITALS: BP 112/70; PULSE 65
--- NOTE | 2022-10-05 14:47 | FL ---
Fluoroscopy History: LESI Lumbar Epid Inj 3sec fluoro time 0.80669 DAP
== END 2022-10-05 14:14 | disposition home or self-care (01) ==
LOC: ORPAIN 12:17
PROVIDERS: ATTEND Specialist
DX: M51.16 Intervertebral disc disorders with radiculopathy, lumbar region (principal); Z91.040 Latex allergy status
CPT/HCPCS: 81025; 62323; J2250; J1040; J3010; Q9966

== ENCOUNTER 2022-12-06 01:32 | Emergency (ER) | payer OTHER ==
[2022-12-06 01:38] VITALS: RESP 16
--- NOTE | 2022-12-06 03:18 | XR ---
EXAM: XR Left Ankle Complete, 3 or More Views CLINICAL HISTORY: ITS.REASON XR Reason: pain TECHNIQUE: Frontal, lateral and oblique views of the left ankle. COMPARISON: No relevant prior studies available. FINDINGS: Bones/joints: No acute osseous abnormalities. Soft tissues: Lateral soft tissue swelling. IMPRESSION: Lateral soft tissue swelling. No acute osseous abnormality.
--- NOTE | 2022-12-06 03:47 | ED ---
Lower Extremity Injury HPI - General Chief Complaint: Extremity Injury, Lower Stated Complaint: Left Ankle Injury Time Seen by Provider: 12/06/22 03:39 Source: patient Mode of arrival: wheelchair - History of Present Illness Initial Comments: 27-year-old female presenting with chief complaint of left ankle injury. Patient states that she rolled that earlier today. She is having increased pain and swelling to the lateral portion of the ankle. Admits to pain with weightbearing. No numbness, tingling, weakness. - Related Data Home Medications Medication Instructions Recorded Confirmed Acetaminophen Tab [Tylenol Tab] 1,000 mg PO Q6HR PRN 10/05/22 10/05/22 Ibuprofen [Motrin] 600 mg PO Q6HR PRN 10/05/22 10/05/22 Allergies Allergy/AdvReac Type Severity Reaction Status Date / Time latex AdvReac Itching Verified 10/05/22 13:04 Review of Systems ROS Statement: Those systems with pertinent positive or pertinent negative responses have been documented in the HPI. ROS Other: All systems not noted in ROS Statement are negative. Past Medical History Past Medical History: No Reported History History of Any Multi-Drug Resistant Organisms: None Reported Past Surgical History: Section Additional Past Surgical History / Comment(s): SURGERY ON A LARGE CHIN LACERATION A CHILD Past Anesthesia/Blood Transfusion Reactions: No Reported Reaction Past Psychological History: No Psychological Hx Reported Smoking Status: Former smoker Past Alcohol Use History: None Reported Past Drug Use History: None Reported - Past Family History Mother Family Medical History: No Reported History General Exam Limitations: no limitations General appearance: alert, in no apparent distress Head exam: Present: atraumatic, normocephalic, normal inspection Eye exam: Present: normal appearance, EOMI Neck exam: Present: normal inspection, full ROM Left Ankle exam: Present: tenderness, swelling. Absent: normal inspection, full ROM Neurological exam: Present: alert, oriented X3, CN II-XII intact Psychiatric exam: Present: normal affect, normal mood Skin exam: Present: warm, dry, intact, normal color. Absent: rash Course Vital Signs 12/06/22 01:36 Temperature 99.1 F Pulse Rate 89 Respiratory 16 Rate Blood Pressure 130/77 O2 Sat by Pulse 98 Oximetry Medical Decision Making - Medical Decision Making Was pt. sent in by a medical professional or institution (, PA, SYSTEM SALES CONSULTANT, urgent care, hospital, or residential...) When possible be specific @ -No Did you speak to anyone other than the patient for history (EMS, parent, family, police, friend...)? What history was obtained from this source @ -No Did you review nursing and triage notes (agree or disagree)? Why? @ -I reviewed and agree with nursing and triage notes Were old charts reviewed (outside hosp., previous admission, EMS record, old EKG, old radiological studies, urgent care reports/EKG's, residential records)? Report findings @ -No old charts were reviewed Differential Diagnosis (chest pain, altered mental status, abdominal pain women, abdominal pain men, vaginal bleeding, weakness, fever, dyspnea, syncope, headache, dizziness, GI bleed, back pain, seizure, CVA, palpatations, mental health, musculoskeletal)? @ -Differential Musculoskeletal Muscular strain, contusion, ligament sprain, fracture, arthritis, septic arthritis, bursitis, cellulitis, muscle spasm, nerve compression, DVT, arterial occlusion, herpes zoster, electrolyte abnormality, tumor.... This is not meant to be in all inclusive list EKG interpreted by me (3pts min.). @ -As above X-rays interpreted by me (1pt min.). @ -X-Ray shows no fracture or dislocation CT interpreted by me (1pt min.). @ -None done U/S interpreted by me (1pt. min.). @ -None done What testing was considered but not performed or refused? (CT, X-rays, U/S, labs)? Why? @ -None What meds were considered but not given or refused? Why? @ -None Did you discuss the management of the patient with other professionals (william phillip ielda Cox, PA, SYSTEM SALES CONSULTANT, lab, RT, psych nurse, manager social services, fruit express agent, teacher, chief wellness officer, shoe caser)? Give summary @ -No Was smoking cessation discussed for >3mins.? @ -No Was critical care preformed (if so, how long)? @ -No Were there social determinants of health that impacted care today? How? (Homelessness, low income, unemployed, alcoholism, drug addiction, transportation, low edu. Level, literacy, decrease access to med. care, [facility], rehab)? @ -No Was there de-escalation of care discussed even if they declined (Discuss DNR or withdrawal of care, Hospice)? DNR status @ -No What co-morbidities impacted this encounter? (DM, HTN, Smoking, COPD, CAD, Cancer, CVA, ARF, Chemo, Hep., AIDS, mental health diagnosis, sleep apnea, morbid obesity)? @ -None Was patient admitted / discharged? Hospital course, mention meds given and route, prescriptions, significant lab abnormalities, going to OR and other pertinent info. @ -27-year-old female presenting with chief complaint of left ankle injury. X- rays negative for fracture or dislocation. Patient is educated on supportive management at home. Provided with stirrup air cast and crutches. Follow-up with PCP. Report back to ER with any new or worsening symptoms. Discussed return parameters and answered all questions. Patient conveyed verbal understanding and agreed to the plan. I discussed this case in detail with my attending Dr. Graves Undiagnosed new problem with uncertain prognosis? @ -No Drug Therapy requiring intensive monitoring for toxicity (Heparin, Nitro, Insulin, Cardizem)? @ -No Were any procedures done? @ -No Diagnosis/symptom? @ -Ankle Sprain Acute, or Chronic, or Acute on Chronic? @ -Acute Uncomplicated (without systemic symptoms) or Complicated (systemic symptoms)? @ -Uncomplicated Side effects of treatment? @ -No Exacerbation, Progression, or Severe Exacerbation? @ -No Poses a threat to life or bodily function? How? (Chest pain, [place], [place], pneumonia, PE, COPD, DKA, ARF, appy, cholecystitis, CVA, Diverticulitis, Homicidal, Suicidal, threat to staff... and all critical care pts) @ -No Disposition Clinical Impression: Ankle sprain Disposition: HOME SELF-CARE Condition: Good Instructions (If sedation given, give patient instructions): Ankle Sprain (ED) Additional Instructions: Follow-up with PCP. Report back to ER with any new or worsening symptoms. Take Motrin and Tylenol as needed for pain control. Rest, ice, elevate the ankle. Is patient prescribed a controlled substance at d/c from ED?: No Referrals: None,Stated [Primary Care Provider] - 1-2 days Time of Disposition: 03:47
[2022-12-06 04:15] VITALS: BP 125/76; PULSE 82; TEMP 98.9
== END 2022-12-06 04:15 | disposition home or self-care (01) ==
LOC: EC 01:32
DX: S93.402A Sprain of unspecified ligament of left ankle, initial encounter (principal); Z87.891 Personal history of nicotine dependence; Z91.040 Latex allergy status; X50.9XXA Other and unspecified overexertion or strenuous movements or postures, initial encounter
CPT/HCPCS: 73610; 99283; L4350

== ENCOUNTER 2024-01-05 16:29 | Emergency (ER) | payer OTHER ==
--- NOTE | 2024-01-05 16:55 | ED ---
Burn/Smoke HPI - General Stated complaint: L arm burn Time Seen by Provider: 01/05/24 16:42 Source: patient, RN notes reviewed - History of Present Illness Initial comments: 28-year-old female with no significant past medical history presents emergency department chief complaint of left arm burn. Patient dates that at work yesterday she burned her left arm on the stove while at work. Patient denies other injuries at this time. Last tetanus vaccination was within the last 5 years. Patient states that she has mild pain with range of motion of the left elbow due to overlying burn. No other acute complaints at this time. - Related Data Home Medications Medication Instructions Recorded Confirmed Acetaminophen Tab [Tylenol Tab] 1,000 mg PO Q6HR PRN 10/05/22 10/05/22 Ibuprofen [Motrin] 600 mg PO Q6HR PRN 10/05/22 10/05/22 Allergies Allergy/AdvReac Type Severity Reaction Status Date / Time latex AdvReac Itching Verified 01/05/24 17:06 Review of Systems ROS Statement: Those systems with pertinent positive or pertinent negative responses have been documented in the HPI. ROS Other: All systems not noted in ROS Statement are negative. Past Medical History Past Medical History: No Reported History History of Any Multi-Drug Resistant Organisms: None Reported Past Surgical History: Section Additional Past Surgical History / Comment(s): SURGERY ON A LARGE CHIN LACERATION A CHILD Past Anesthesia/Blood Transfusion Reactions: No Reported Reaction Past Psychological History: No Psychological Hx Reported Smoking Status: Former smoker Past Alcohol Use History: None Reported Past Drug Use History: None Reported - Past Family History Mother Family Medical History: No Reported History General Exam General appearance: alert, in no apparent distress Head exam: Present: atraumatic, normocephalic, normal inspection Eye exam: Present: normal appearance, PERRL, EOMI. Absent: scleral icterus, conjunctival injection, periorbital swelling ENT exam: Present: normal exam, mucous membranes moist Neck exam: Present: normal inspection. Absent: tenderness, meningismus, lymphadenopathy Respiratory exam: Present: normal lung sounds bilaterally. Absent: respiratory distress, wheezes, rales, rhonchi, stridor Cardiovascular Exam: Present: regular rate, normal rhythm, normal heart sounds. Absent: systolic murmur, diastolic murmur, rubs, gallop, clicks GI/Abdominal exam: Present: soft, normal bowel sounds. Absent: distended, tenderness, guarding, rebound, rigid Left Elbow exam: Present: full ROM, tenderness (medial ventral overlying skin 1st degree burn aprox. 2 cm by 1 cm). Absent: swelling, abrasion, laceration, ecchymosis, deformity, crepitus Vascular: Present: normal capillary refill, radial pulse (2+). Absent: vascular compromise Back exam: Present: normal inspection Neurological exam: Present: alert, oriented X3, CN II-XII intact Skin exam: Present: warm, dry, intact, normal color. Absent: rash Course Vital Signs 01/05/24 01/05/24 17:02 17:25 Temperature 98 F 98.2 F Pulse Rate 64 68 Respiratory 18 18 Rate Blood Pressure 111/78 115/64 O2 Sat by Pulse 100 98 Oximetry Medical Decision Making - Medical Decision Making Was pt. sent in by a medical professional or institution (, PA, SINGLE SPINDLE SCREW MACHINE OPERATOR, urgent care, hospital, or residential...) When possible be specific @ -No Did you speak to anyone other than the patient for history (EMS, parent, family, police, friend...)? What history was obtained from this source @ -No Did you review nursing and triage notes (agree or disagree)? Why? @ -I reviewed and agree with nursing and triage notes Were old charts reviewed (outside hosp., previous admission, EMS record, old EKG, old radiological studies, urgent care reports/EKG's, residential records)? Report findings @ -No old charts were reviewed Differential Diagnosis (chest pain, altered mental status, abdominal pain women, abdominal pain men, vaginal bleeding, weakness, fever, dyspnea, syncope, headache, dizziness, GI bleed, back pain, seizure, CVA, palpatations, mental health, musculoskeletal)? @ -First-degree burn, second-degree burn, cellulitis, this list is not all inclusive EKG interpreted by me (3pts min.). @ -None X-rays interpreted by me (1pt min.). @ -None done CT interpreted by me (1pt min.). @ -None done U/S interpreted by me (1pt. min.). @ -None done What testing was considered but not performed or refused? (CT, X-rays, U/S, labs)? Why? @ -None What meds were considered but not given or refused? Why? @ -None Did you discuss the management of the patient with other professionals (professionals i.e. , PA, SINGLE SPINDLE SCREW MACHINE OPERATOR, lab, RT, psych nurse, psychosocial rehabilitation counselor, plant maintenance worker, teacher, civilian jail officer, telephonic nurse case manager)? Give summary @ -No Was smoking cessation discussed for >3mins.? @ -No Was critical care preformed (if so, how long)? @ -No Were there social determinants of health that impacted care today? How? (Homelessness, low income, unemployed, alcoholism, drug addiction, berman sportation, low edu. Level, literacy, decrease access to med. care, [facility], rehab)? @ -No Was there de-escalation of care discussed even if they declined (Discuss DNR or withdrawal of care, Hospice)? DNR status @ -No What co-morbidities impacted this encounter? (DM, HTN, Smoking, COPD, CAD, Cancer, CVA, ARF, Chemo, Hep., AIDS, mental health diagnosis, sleep apnea, morbid obesity)? @ -None Was patient admitted / discharged? Hospital course, mention meds given and route, prescriptions, significant lab abnormalities, going to OR and other pertinent info. @ -Discharged. 28-year-old female with a burn to the left forearm. On examination patient noted to have a first-degree burn measuring approximately 2 cm x 1 cm with no overlying bullae or blister formation. Patient is neurovascularly intact with full range of motion of the left upper extremity. Patient's last tetanus vaccination was within the last 5 years therefore this is deferred. She is provided with topical antibiotic ointment and a work note for the next 2 days. Instruct patient to use topical antibiotic cream 3 times per day over the affected area for a week to minimize chance of infection. All questions answered at bedside and strict return parameters discussd with patient and she has verablized understandig. Discussed with Dr. Aiken Undiagnosed new problem with uncertain prognosis? @ -No Drug Therapy requiring intensive monitoring for toxicity (Heparin, Nitro, Insulin, Cardizem)? @ -No Were any procedures done? @ -No Diagnosis/symptom? @ -First-degree burn Acute, or Chronic, or Acute on Chronic? @ -Acute Uncomplicated (without systemic symptoms) or Complicated (systemic symptoms)? @ -Uncomplicated Side effects of treatment? @ -No Exacerbation, Progression, or Severe Exacerbation? @ -No Poses a threat to life or bodily function? How? (Chest pain, [place], [place], pneumonia, PE, COPD, DKA, ARF, appy, cholecystitis, CVA, Diverticulitis, Homicidal, Suicidal, threat to staff... and all critical care pts) @ -No Disposition Clinical Impression: Burn Disposition: HOME SELF-CARE Condition: Good Instructions (If sedation given, give patient instructions): Superficial Burn (ED) Additional Instructions: Return to the emergency department for any new or worsening symptoms. Use topical antibiotic cream 3 times per day over affected area. Is patient prescribed a controlled substance at d/c from ED?: No Referrals: None,Stated [Primary Care Provider] - 1-2 days Time of Disposition: 17:14
[2024-01-05 17:06] VITALS: RESP 18
[2024-01-05] MEDS: MUPIROCIN 2% OINT 22 GM TUBE TOPICAL STA (17:25)
[2024-01-05 17:31] VITALS: BP 115/64; PULSE 68; TEMP 98.2
== END 2024-01-05 17:25 | disposition home or self-care (01) ==
LOC: EC 16:29
DX: R52 Pain, unspecified
CPT/HCPCS: 99283

== ENCOUNTER 2024-02-21 13:05 | Emergency (ER) | payer OTHER ==
--- NOTE | 2024-02-21 13:25 | ED ---
General Adult HPI - General Chief complaint: Headache Stated complaint: Fall/Head Time Seen by Provider: 02/21/24 13:10 Source: patient, RN notes reviewed, old records reviewed Mode of arrival: ambulatory Limitations: no limitations - History of Present Illness Initial comments: This is a 28-year-old female who presents to the emergency department stating she fell and hit the entertainment center on the left side in the temporal region. Patient states she has a headache and is nauseous. Patient did not vomit patient states she did not lose consciousness. Patient denies neck pain. Patient has any numbness weakness. Patient Nu[place] any other injury. Patient denies being on blood thinners - Related Data Home Medications Medication Instructions Recorded Confirmed Acetaminophen Tab [Tylenol Tab] 1,000 mg PO Q6HR PRN 10/05/22 10/05/22 Ibuprofen [Motrin] 600 mg PO Q6HR PRN 10/05/22 10/05/22 Allergies Allergy/AdvReac Type Severity Reaction Status Date / Time latex AdvReac Itching Verified 01/05/24 17:06 Review of Systems ROS Statement: Those systems with pertinent positive or pertinent negative responses have been documented in the HPI. ROS Other: All systems not noted in ROS Statement are negative. Past Medical History Past Medical History: No Reported History History of Any Multi-Drug Resistant Organisms: None Reported Past Surgical History: Section Additional Past Surgical History / Comment(s): SURGERY ON A LARGE CHIN LACERATION A CHILD Past Anesthesia/Blood Transfusion Reactions: No Reported Reaction Past Psychological History: No Psychological Hx Reported Smoking Status: Former smoker Past Alcohol Use History: None Reported Past Drug Use History: None Reported - Past Family History Mother Family Medical History: No Reported History General Exam - General Exam Comments Initial Comments: GENERAL: Patient is well-developed and well-nourished. Patient is nontoxic and well- hydrated and is in mild distress. ENT: Neck is soft and supple. No significant lymphadenopathy is noted. Oropharynx is clear. Moist mucous membranes. Patient has no neck pain patient has full range of motion of the neck EYES: The sclera were anicteric and conjunctiva were pink and moist. Extraocular movements were intact and pupils were equal round and reactive to light. Eyelids were unremarkable. PULMONARY: Unlabored respirations. Good breath sounds bilaterally. No audible rales rhonchi or wheezing was noted. CARDIOVASCULAR: There is a regular rate and rhythm without any murmurs gallops or rubs. ABDOMEN: Soft and nontender with normal bowel sounds. SKIN: Patient has a small abrasion on the temporal region on the left side of the head. NEUROLOGIC: Patient is alert and oriented x3. Cranial nerves II through XII are grossly intact. Motor and sensory are also intact. Normal speech, volume and content. Symmetrical smile. MUSCULOSKELETAL: Normal extremities with adequate strength and full range of motion. LYMPHATICS: No significant lymphadenopathy is noted PSYCHIATRIC: Normal psychiatric evaluation. Limitations: no limitations Course Vital Signs 02/21/24 02/21/24 02/21/24 13:08 15:01 17:02 Temperature 97.8 F 98.0 F Pulse Rate 70 56 L 69 Respiratory 22 18 16 Rate Blood Pressure 135/85 128/85 128/79 O2 Sat by Pulse 99 100 100 Oximetry Medical Decision Making - Medical Decision Making Was pt. sent in by a medical professional or institution (, PA, AWNING HANGER HELPER, urgent care, hospital, or senior living...) When possible be specific @ -No Did you speak to anyone other than the patient for history (EMS, parent, family, police, friend...)? What history was obtained from this source @ -No Did you review nursing and triage notes (agree or disagree)? Why? @ -I reviewed and agree with nursing and triage notes Were old charts reviewed (outside hosp., previous admission, EMS record, old EKG, old radiological studies, urgent care reports/EKG's, senior living records)? Report findings @ -No old charts were reviewed Differential Diagnosis? @ -Fracture, epidural, subdural, intraparenchymal hemorrhage, cerebral contusion, this is not an all-inclusive list EKG interpreted by me (3pts min.). @ -As above X-rays interpreted by me (1pt min.). @ -None done CT interpreted by me (1pt min.). @ -CT of the brain shows a right frontal lobe contusion U/S interpreted by me (1pt. min.). @ -None done What testing was considered but not performed or refused? (CT, X-rays, U/S, labs)? Why? @ -None What meds were considered but not given or refused? Why? @ -None Did you discuss the management of the patient with other professionals (professionals i.e. , PA, AWNING HANGER HELPER, lab, RT, psych nurse, social worker health services, radiology supervisor, teacher, fiscal officer, case fitter)? Give summary @ -I spoke with Dr. Gilliam he wanted the patient transferred. [facility] was contacted and they wanted the patient transferred Was smoking cessation discussed for >3mins.? @ -No Was critical care preformed (if so, how long)? @ -No Were there social determinants of health that impacted care today? How? (Homelessness, low income, unemployed, alcoholism, drug addiction, tra nsportation, low edu. Level, literacy, decrease access to med. care, chcf, rehab)? @ -No Was there de-escalation of care discussed even if they declined (Discuss DNR or withdrawal of care, Hospice)? DNR status @ -No What co-morbidities impacted this encounter? (DM, HTN, Smoking, COPD, CAD, Cancer, CVA, ARF, Chemo, Hep., AIDS, mental health diagnosis, sleep apnea, morbid obesity)? @ -None Was patient admitted / discharged? Hospital course, mention meds given and route, prescriptions, significant lab abnormalities, going to OR and other pertinent info. @ -Patient was given Zofran for the nausea otherwise she remained stable throughout her ED stay Undiagnosed new problem with uncertain prognosis? @ -No Drug Therapy requiring intensive monitoring for toxicity (Heparin, Nitro, Insulin, Cardizem)? @ -No Were any procedures done? @ -No Diagnosis/symptom? @ -Frontal lobe contusion Acute, or Chronic, or Acute on Chronic? @ -Acute Uncomplicated (without systemic symptoms) or Complicated (systemic symptoms)? @ -Complicated Side effects of treatment? @ -No Exacerbation, Progression, or Severe Exacerbation? @ -No Poses a threat to life or bodily function? How? (Chest pain, [place], [place], pneumonia, PE, COPD, DKA, ARF, appy, cholecystitis, CVA, Diverticulitis, Homicidal, Suicidal, threat to staff... and all critical care pts) @ -Yes this can lead to a further bleed and possible - Lab Data Result diagrams: 02/21/24 14:50 02/21/24 14:50 Lab Results 02/21/24 02/21/24 Range/Units 14:50 14:50 WBC 6.9 (3.8-10.6) k/uL RBC 4.50 (3.80-5.40) m/uL Hgb 11.1 L (11.4-16.0) gm/dL Hct 36.1 (34.0-46.0) % MCV 80.1 (80.0-100.0) fL MCH 24.6 L (25.0-35.0) pg MCHC 30.7 L (31.0-37.0) g/dL RDW 15.9 H (11.5-15.5) % Plt Count 153 (150-450) k/uL MPV 7.5 Neutrophils % 62 % Lymphocytes % 24 % Monocytes % 4 % Eosinophils % 8 % Basophils % 1 % Neutrophils # 4.3 (1.3-7.7) k/uL Lymphocytes # 1.6 (1.0-4.8) k/uL Monocytes # 0.3 (0-1.0) k/uL Eosinophils # 0.5 (0-0.7) k/uL Basophils # 0.0 (0-0.2) k/uL Hypochromasia Marked Sodium 138 (137-145) mmol/L Potassium 4.0 (3.5-5.1) mmol/L Chloride 110 H (98-107) mmol/L Carbon Dioxide 25 (22-30) mmol/L Anion Gap 3 mmol/L BUN 6 L (7-17) mg/dL Creatinine 0.70 (0.52-1.04) mg/dL Est GFR (CKD-EPI)AfAm >90 (>60 ml/min/1.73 sqM) Est GFR (CKD-EPI)NonAf >90 (>60 ml/min/1.73 sqM) Glucose 76 (74-99) mg/dL Calcium 9.6 (8.4-10.2) mg/dL Total Bilirubin 0.4 (0.2-1.3) mg/dL AST 28 (14-36) U/L ALT 18 (4-34) U/L Alkaline Phosphatase 44 (38-126) U/L Total Protein 6.5 (6.3-8.2) g/dL Albumin 4.1 (3.5-5.0) g/dL Critical Care Time Critical Care Time: Yes Total Critical Care Time: 35 Disposition Clinical Impression: Frontal lobe contusion Disposition: OTHER INSTITUTION NOT DEFINED Referrals: None,Stated [Primary Care Provider] - 1-2 days Time of Disposition: 15:57 - Out of Hospital Transfer - Req. Specs Out of Hospital Transfer - Requested Specifics: Other Emergency Center ([facility])
[2024-02-21] MEDS: ONDANSETRON ODT 4 MG TAB PO STA (13:48)
--- NOTE | 2024-02-21 13:48 | CT ---
EXAMINATION TYPE: CT brain wo con CT DLP: 1095.9 mGycm, Automated exposure control for dose reduction was used. DATE OF EXAM: 02/21/2024 1:38 PM COMPARISON: None. CLINICAL INDICATION:Female, 28 years old with history of Hit head, Hit head, headache TECHNIQUE: Brain: Multiple axial CT images of the brain were obtained without IV contrast. . Coronal and sagitta l reformats reviewed. FINDINGS: Brain: Extra-axial spaces: No abnormal extra-axial fluid collections. Ventricular system: Within normal limits Cerebral parenchyma: Anterior peripheral right frontal lobe hyperdense region (series 201, image 26). No mass effect. The tolbert-white junction is well differentiated. Right basal ganglia prominent periva scular space. Cerebellum: Cerebellar tonsils protrude approximately 5 mm through the foramen magnum. Mass effect: No evidence of midline shift. Intracranial vasculature: unremarkable Soft tissues: Normal. Calvarium/osseous structures: No depressed skull fracture. Paranasal sinuses and mastoid air cells: Mastoid air cells are clear. Minimal mucosal thickening of t he right maxilla sinus. Aplasia of the left frontal sinus. Visualized orbits: Orbital contents are intact. IMPRESSION: 1. Acute right anterior frontal lobe contusion. 2. Cerebellar tonsils protrude approximately 5 mm below the foramen of magnum. Raises possibility of Chiari I malformation. Further workup is recommended. [facility], , 02/21/2024 1:45 PM
[2024-02-21 14:55] LABS: Basophils % (A) 1 %; Eosinophils # (A) 0.5 k/uL (0-0.7); Eosinophils % (A) 8 %; HCT 36.1 % (34.0-46.0); HGB 11.1 gm/dL (11.4-16.0); Hypochromasia Marked; Lymphocytes # (A) 1.6 k/uL (1.0-4.8); Lymphocytes % (A) 24 %; MCH 24.6 pg (25.0-35.0); MCHC 30.7 g/dL (31.0-37.0); MCV 80.1 fL (80.0-100.0); Mean Platelet Volume 7.5; Monocytes # (A) 0.3 k/uL (0-1.0); Monocytes % (A) 4 %; Neutrophils # (A) 4.3 k/uL (1.3-7.7); Neutrophils % (A) 62 %; Platelet Count 153 k/uL (150-450); RDW 15.9 % (11.5-15.5); WBC 6.9 k/uL (3.8-10.6)
[2024-02-21 15:25] LABS: ALT 18 U/L (4-34); AST 28 U/L (14-36); African American GFR (CKD) >90 (>60 ml/min/1.73 sqM); Albumin 4.1 g/dL (3.5-5.0); Alkaline Phosphatase 44 U/L (38-126); Anion Gap 3 mmol/L; Blood Urea Nitrogen 6 mg/dL (7-17); Calcium 9.6 mg/dL (8.4-10.2); Carbon Dioxide 25 mmol/L (22-30); Chloride 110 mmol/L (98-107); Glucose 76 mg/dL (74-99); Non-African American GFR(CKD) >90 (>60 ml/min/1.73 sqM); Sodium 138 mmol/L (137-145); Total Bilirubin 0.4 mg/dL (0.2-1.3); Total Protein 6.5 g/dL (6.3-8.2)
[2024-02-21 17:05] VITALS: BP 128/79; PULSE 69; RESP 16; TEMP 98
== END 2024-02-21 17:05 | disposition other institution (70) ==
LOC: EC 13:05
CPT/HCPCS: 36415; 70450; 80053; 85025; 99285